=== PATIENT | male | born 1985 | race Caucasian/White ===

== ENCOUNTER 2018-11-04 19:24 | Emergency (ER) | payer OTHER ==
--- NOTE | 2018-11-04 19:41 | ER Report ---
History and Physical Time Seen By MD: 19:39 HPI/ROS CHIEF COMPLAINT: Head injury HISTORY OF PRESENT ILLNESS: 33-year-old male was struck by a door that fell from a standing position. The door was a metal exterior door that was pre-hung. It fell out of the opening striking him in the head, knocking him to the ground. He denies neck pain. This occurred almost 8 hours ago. Is a large abrasion on his left parietal area. She notes some dizziness, some mild nausea but no vomiting. Any other injuries. Patient thinks his tetanus status is up-to-date. REVIEW OF SYSTEMS: Respiratory: No cough, no dyspnea. Cardiovascular: No chest pain, no palpitations. Gastrointestinal: No vomiting, no abdominal pain. Musculoskeletal: No back pain. Allergies: Coded Allergies: No Known Drug Allergies (Unverified , 11/04/18) Home Meds Active Scripts Ondansetron 4 Mg Odt (ONDANSETRON 4 MG ODT) 4 Mg Tab.rapdis, 4 MG PO Q6H PRN for NAUSEA/VOMITING, #12 TAB Prov:SONG LOPEZ DO 11/04/18 Reviewed Nurses Notes: Yes Old Medical Records Reviewed: Yes Constitutional Vital Sign - Last 24 Hours 11/04/18 11/04/18 11/04/18 11/04/18 19:39 19:41 19:54 20:00 Temp 97.8 Pulse 77 74 83 Resp 17 B/P (MAP) 121/67 129/68 (88) Pulse Ox 91 93 92 O2 Delivery Room Air 11/04/18 11/04/18 11/04/18 11/04/18 20:09 20:30 20:39 20:54 Pulse 86 74 71 B/P (MAP) 109/62 (78) Pulse Ox 94 86 94 11/04/18 21:00 B/P (MAP) 115/60 (78) Physical Exam Vital signs stable, afebrile, pulse ox normal General Appearance: The patient is alert, has no immediate need for airway protection and no current signs of toxicity., Palpation of the head and neck reveal no tenderness or trauma except in the area of the abrasion. There is no depressed skull fragment. HEENT: Pupils equal and round no injection. TMs normal, oropharynx without redness or exudate, mucous members are moist. No dental trauma Respiratory: Chest is non tender, lungs are clear to auscultation. No chest wall tenderness Cardiac: regular rate and rhythm Gastrointestinal: Abdomen is soft and non tender, no masses, bowel sounds normal. Musculoskeletal: Neck: Neck is supple and non tender. Extremities have full range of motion and are non tender. Skin: No rashes or lesions. Neuro alert and oriented 3, cranial 2 through 12 intact motor 5/5 gambling counsellor, sensor y intact to light touch 4, cerebellum grossly intact DIFFERENTIAL DIAGNOSIS: After history and physical exam differential diagnosis was considered for head injury including but not limited to concussion, skull fracture, intraparenchymal contusion, subarachnoid, subdural and epidural hematoma. Medical Decision Making EKG/Imaging Imaging Results: CT scan of the head without contrast was obtained. The results of the study are no acute traumatic findings noted. The study was read by the radiologist. I viewed the images myself on the PACS system. ED Course/Re-evaluation ED Course Patient was admitted to an examination room. H&P was done. The differential diagnoses was considered. Patient with mild nausea. He did have some memory problems. Suggesting a concussion. Patient was heard Zofran for his nausea, but he declined. A CAT scan was ordered since he's been having memory issues. There is a nonfocal neurologic examination. I suspect the patient has a concussion. The CAT scan was unremarkable. Upon returning from CT scan. Patient came quite dizzy with vertigo. He was given Zofran 4 mg. Patient's discharged home on Tylenol and ibuprofen. He is also given a prescription for Zofran. Head injury Precautions were reviewed. Decision to Disposition Date: Nov 04, 2018 Decision to Disposition Time: 20:36 Depart Departure Latest Vital Signs Vital Signs Date Time Temp Pulse Resp B/P (MAP) Pulse Ox O2 Delivery O2 Flow Rate FiO2 11/04/18 21:00 115/60 (78) 11/04/18 20:54 71 94 11/04/18 19:41 97.8 17 Room Air Impression: Primary Impression: Head injury Additional Impressions: Scalp abrasion Mild concussion Condition: Improved Disposition: HOME OR SELF-CARE New Scripts Ondansetron 4 Mg Odt (ONDANSETRON 4 MG ODT) 4 Mg Tab.rapdis 4 MG PO Q6H PRN for NAUSEA/VOMITING, #12 TAB Prov: SONG LOPEZ DO 6/15/19 Patient Instructions: Abrasion (ED), Concussion (ED) Additional Instructions: Take ibuprofen or Tylenol as needed for pain relief Follow-up with primary care if unimproved in 3-5 days. Problem Qualifiers Primary Impression: Head injury Encounter type: initial encounter Qualified Codes: S09.90XA - Unspecified injury of head, initial encounter Additional Impressions: Scalp abrasion Encounter type: initial encounter Qualified Codes: S00.01XA - Abrasion of scalp, initial encounter Mild concussion Encounter type: initial encounter Loss of consciousness presence/duration: without LOC Qualified Codes: S06.0X0A - Concussion without loss of consciousness, initial encounter SONG LOPEZ DO Nov 04, 2018 19:41
[2018-11-04] MEDS ORDERED: ONDANSETRON 4 MG ODT TABDP SL ONE (20:29)
[2018-11-04] MEDS ORDERED: ONDA4TAB9 PO (20:54)
[2018-11-04] MEDS ORDERED: ONDANSETRON 4 MG ODT TH SL ONE (20:55)
[2018-11-04 21:00] VITALS: BP 115/60
== END 2018-11-04 21:38 | disposition home or self-care (01) ==
LOC: ER 19:51
DX: S06.0X0A Concussion without loss of consciousness, initial encounter (principal); S09.90XA Unspecified injury of head, initial encounter; S00.01XA Abrasion of scalp, initial encounter
CPT/HCPCS: 70450; 99284; S0119

== ENCOUNTER 2018-11-15 10:02 | Emergency (ER) | payer OTHER ==
[~2018-11-15 10:02] MED LIST: ONDA4TAB9 PO
[2018-11-15] MEDS ORDERED: KETOROLAC 60 MG/2 ML VIAL IM ONE (10:30)
[2018-11-15] MEDS ORDERED: predniSONE 20 MG TAB PO ONE (10:30)
--- NOTE | 2018-11-15 11:15 | RADIOLOGY IMAGING REPORT ---
FACILITY: [facility] PATIENT NAME: Jefry Randall : 1985 MR: [id number] V: [id number] EXAM DATE: ORDERING PHYSICIAN: JESSICA GAY TECHNOLOGIST: Location: [facility] - [place] Patient: Jefry Randall : 1985 Visit/Account:[id number] Date of Sevice: 11/15/2018 CT VERTEBRA LUMBAR (NON CON) COMPARISONS: None. ADDITIONAL PERTINENT HISTORY: Lower extremity paresthesias. TECHNIQUE: Multiple axial images were obtained through the lumbar spine without IV contrast. Ivan l and sagittal reformatted images were obtained off the axial source data. One of the following dose optimization techniques was utilized in the performance of this exam: Automated exposure control; ad justment of the mA and/or kV according to the patient's size; or use of an iterative reconstruction technique. Specific details can be referenced in the facility's radiology CT exam operational policy . FINDINGS: Vertebral body heights and alignment: Negative. Vertebral bodies: Negative. Disc spaces: Negative. Thoraco-lumbar junction: Negative. Surrounding soft tissues: <Small increased density focus involving the lower pole of the right kidne y compatible with a small nonobstructing renal calculus. Rather significant distention of the urinary bladder. Visualized bony pelvis: Negative. IMPRESSION: 1. No acute appearing bony abnormalities. Report Dictated By: Carl Garber MD at 11/15/2018 11:06 AM Report E-Signed By: Carl Garber MD at 11/15/2018 11:08 AM WSN:[id number]
--- NOTE | 2018-11-15 11:24 | ER Report ---
History and Physical Time Seen By MD: 10:15 Hx. of Stated Complaint: HEAD INJURY 1 WEEK AGO. NEW ONSET OF BILATERAL LEG NUMBNESS WITH RUNNING AND TINNITIS HPI/ROS CHIEF COMPLAINT: Tinnitus, lower extremity numbness while running HISTORY OF PRESENT ILLNESS: Patient is a 33-year-old male here with complaints of tinnitus which has been intermittent prior to his injury. Patient did have a concussion approximately 2 weeks ago and reports more frequent tinnitus. Patient denies headache, blurred vision, nausea, vomiting. Patient was primarily concerned about numbness while running in his lower extremities primarily below the knees. Patient is neurovascularly intact at time of evaluation, reflexes are brisk. Patient does have a history of intermittent lower back pains but denies recent trauma. Patient is afebrile denies recent illnesses or motor weakness, saddle anesthesia, bowel or bladder incontinence. REVIEW OF SYSTEMS: Constitutional: No fever, no chills. Eyes: No discharge. ENT: No sore throat. Cardiovascular: No chest pain, no palpitations. Respiratory: No cough, no shortness of breath. Gastrointestinal: No abdominal pain, no vomiting. Genitourinary: No hematuria. Musculoskeletal: + Intermittent chronic lower back pain. Skin: No rashes. Neurological: Paresthesias below the knees while running Allergies: Coded Allergies: No Known Drug Allergies (Unverified , 11/15/18) Home Meds Discontinued Scripts Ondansetron 4 Mg Odt (ONDANSETRON 4 MG ODT) 4 Mg Tab.rapdis, 4 MG PO Q6H PRN for NAUSEA/VOMITING, #12 TAB Prov:SONG LOPEZ DO 11/04/18 Hx Substance Use Disorder: No Constitutional Vital Sign - Last 24 Hours 11/15/18 10:05 Temp 97.7 Pulse 58 Resp 20 B/P (MAP) 142/55 Pulse Ox 94 O2 Delivery Room Air Physical Exam General Appearance: The patient is alert, has no immediate need for airway protection and no signs of toxicity. No acute distress Eyes: Pupils equal and round no pallor or injection. ENT, Mouth: Mucous membranes are moist. Respiratory: There are no retractions, lungs are clear to auscultation. Cardiovascular: Regular rate and rhythm. Gastrointestinal: Abdomen is soft and non tender, no masses, bowel sounds normal. Neurological: Neurovascular exam intact, Otello reflexes brisk, capillary refill less than 2 seconds in the distal lower extremities Skin: Warm and dry, no rashes. Musculoskeletal: Neck is supple non tender. Extremities are nontender, nonswollen and have full range of motion. DIFFERENTIAL DIAGNOSIS: After history and physical exam differential diagnosis was considered for infection, nerve impingement, vascular impingement, lower back injury, radiculopathy Medical Decision Making EKG/Imaging Imaging PATIENT NAME: Jefry Randall : 1985 MR: [id number] V: [id number] EXAM DATE: ORDERING PHYSICIAN: JESSICA GAY TECHNOLOGIST: Location: [facility] - [place] Patient: Jefry Randall : 1985 Visit/Account:[id number] Date of Sevice: 11/15/2018 CT VERTEBRA LUMBAR (NON CON) COMPARISONS: None. ADDITIONAL PERTINENT HISTORY: Lower extremity paresthesias. TECHNIQUE: Multiple axial images were obtained through the lumbar spine without IV contrast. Coronal and sagittal reformatted images were obtained off the axial source data. One of the following dose optimization techniques was utilized in the performance of this exam: Automated exposure control; adjustment of the mA and/or kV according to the patient's size; or use of an iterative reconstruction technique. Specific details can be referenced in the facility's radiology CT exam operational policy. FINDINGS: Vertebral body heights and alignment: Negative. Vertebral bodies: Negative. Disc spaces: Negative. Thoraco-lumbar junction: Negative. Surrounding soft tissues: <Small increased density focus involving the lower pole of the right kidney compatible with a small nonobstructing renal calculus. Rather significant distention of the urinary bladder. Visualized bony pelvis: Negative. IMPRESSION: 1. No acute appearing bony abnormalities. ED Course/Re-evaluation ED Course Patient is a 33-year-old male here with complaints of tinnitus, recent concussion proximal leg 2 weeks ago, lower extremity paresthesias below the days all running. Patient was concerned that his current symptoms started after his recent concussion. I explained to them that there is likely no connection between the concussion and lower extremity paresthesias especially in the absence of reflex compromise, motor weakness, bowel or bladder incontinence, saddle anesthesia. CT imaging of the lumbar spine showed no acute fractures or facet narrowing. Patient had good neurovascular examination with capillary refill less than 2 seconds in the distal lower extremities. Motor strength intact. Patient was started on a three-day course of prednisone for inflammation. Recommend close PCP follow-up. Return precautions were provided. Decision to Disposition Date: Nov 15, 2018 Decision to Disposition Time: 11:30 Depart Departure Latest Vital Signs Vital Signs Date Time Temp Pulse Resp B/P (MAP) Pulse Ox O2 Delivery O2 Flow Rate FiO2 11/15/18 10:05 97.7 58 20 142/55 94 Room Air Impression: Primary Impression: Paresthesias Additional Impression: Mild concussion Condition: Improved Disposition: HOME OR SELF-CARE New Scripts Prednisone (PREDNISONE) 50 Mg Tablet 50 MG PO QDAY for 3 Days, #3 TAB Prov: JESSICA GAY DO 11/15/18 Departure Forms: Medications Reconciliation, Patient Portal Information, ER Transition Record Patient Instructions: Paresthesia (ED) Additional Instructions: Please take prednisone 1 tablet daily for 3 days. You may take NSAIDs, rest, stretch as needed for treatment of pain and numbness. Please return promptly if you develop bowel or bladder incontinence, urinary retention, numbness, motor weakness. Please follow-up with your family doctor in the next 3-5 days. Problem Qualifiers JESSICA GAY DO Nov 15, 2018 11:24
[2018-11-15 11:30] VITALS: BP 114/61
[2018-11-15] MEDS ORDERED: PRED50TA22 PO (11:34)
== END 2018-11-15 11:37 | disposition home or self-care (01) ==
LOC: ER 10:24
DX: R20.2 Paresthesia of skin (principal); S06.0X0A Concussion without loss of consciousness, initial encounter
CPT/HCPCS: 72131; 99284; J1885; J7512; 96372